=== PATIENT | male | born 1965 | race Caucasian/White ===

== ENCOUNTER 2017-07-02 12:28 | Day surgery (SDC) | payer OTHER ==
[2017-07-02] MEDS ORDERED: FENTAnyl 50 MCG/ML VIAL (16:47)
[2017-07-02] MEDS ORDERED: PROPOFOL 20 ML (16:47)
== END 2017-07-02 19:59 | disposition home or self-care (01) ==
LOC: SDS 12:28 → GIL 12:34 → SDS 19:59
DX: Z12.11 Encounter for screening for malignant neoplasm of colon (principal); K57.90 Diverticulosis of intestine, part unspecified, without perforation or abscess without bleeding; K64.8 Other hemorrhoids
CPT/HCPCS: 45378